=== PATIENT | male | born 1975 | race Caucasian/White ===

== ENCOUNTER 2019-03-15 17:21 | Emergency (ER) | payer OTHER ==
--- NOTE | 2019-03-15 17:34 | EDPHY ---
H & P Stated Complaint: colon cancer lives [place] seen last [facility]/ increased pain Time Seen by Provider: 03/15/19 17:33 - Personal History Current Tetanus Diphtheria and Acellular Pertussis (TDAP): Yes - Medical/Surgical History Hx Asthma: No Hx Chronic Respiratory Disease: No Hx Diabetes: No Hx Cardiac Disease: No Hx Renal Disease: No Hx Cirrhosis: No Hx Alcoholism: No Hx HIV/AIDS: No Hx Splenectomy or Spleen Trauma: No Other PMH: colon cancer dvt r arm abd stents - Social History Smoking Status: Never smoked Constitutional: Initial Vital Signs Temperature (C) 36.6 C 03/15/19 17:26 Heart Rate 83 03/15/19 17:26 Respiratory Rate 18 03/15/19 17:26 Blood Pressure 113/81 H 03/15/19 17:26 O2 Sat (%) 96 03/15/19 17:26 O2 Delivery Mode Nasal Cannula O2 (L/minute) 2 Allergies/Adverse Reactions: No Known Allergies Allergy (Unverified 03/15/19 17:24) Home Medications: Medication Instructions Recorded Amlodipine Besylate 03/15/19 Ativan 03/15/19 Azithioprrene 03/15/19 Cymbalta 03/15/19 Eliquis 03/15/19 Lisinopril 03/15/19 Oxycodone HCl 03/15/19 Prednisone 03/15/19 Medical Decision Making ED Course/Re-evaluation: CHIEF COMPLAINT: Abdominal pain HISTORY OF PRESENT ILLNESS: The patient is a 43 y/o male with a history of metastatic colon cancer complaining of severe abdominal pain. The patient is being treated for cancer in [place] after being diagnosed 1.5 years ago. The patient is about to start another round of treatment next week and had an intestinal stent placed. Last Friday, he had a PET scan and is requesting not to have another CT. Today while driving home he developed the severe pain. He is still passing gas and does not feel obstructed. No fever, headache, body aches, lightheadedness, chest pain, heart palpitations, shortness of breath, cough, urinary or bowel complaints, numbness, paresthesias. REVIEW OF SYSTEMS: A comprehensive 10 system review of systems is otherwise negative aside from elements mentioned in the history of present illness and medical decision making. PHYSICAL EXAM: HR, BP, O2 Sat, RR. Temp noted General Appearance: Alert, well hydrated, appropriate, and non-toxic appearing. Head: Atraumatic without scalp tenderness or obvious injury Eyes: Pupils equal, round, reactive to light and accommodation, EOMI, no trauma , no injection. Ears: Clear bilaterally, no perforation, normal landmarks Nose: Atraumatic, no rhinorrhea, clear. Throat: There is no erythema or exudates, no lesions, normal tonsils, mucus membranes moist. Neck: Supple, 2+ carotid upstroke, nontender, no lymphadenopathy. Respiratory: No retractions, no distress, no wheezes, and no accessory muscle use. Lungs are clear to auscultation bilaterally. Cardiovascular: Regular rate and rhythm, no murmurs, rubs, or gallops. Bilateral carotid, radial, dorsalis pedis, and posterior tibial pulses intact. Good capillary refill all extremities. Gastrointestinal: Abdomen is soft, nontender, non-distended, no masses, no rebound, no guarding, no peritoneal signs. Musculoskeletal: Normal active ROM of all extremities, atraumatic. Neurological: Alert, appropriate, and interactive. The patient has normal DTRs and non-focal cranial nerves, motor, sensory, and cerebellar exam. Skin: No rashes, good turgor, no nodules on palpation. Past medical history: Colon cancer, DVT Past surgical history: Intestinal stent Family history: Denies Social history: Lives in [place], employed, does not abuse tobacco drugs or alcohol DIAGNOSTICS/PROCEDURES/CRITICAL CARE TIME: Declined. DIFFERENTIAL DIAGNOSIS: The differential diagnosis for the patient's abdominal pain included but was not limited to metastatic colon cancer, appendicitis, cholecystitis, hernias, testicular torsion, gastritis, and urinary tract infection. MEDICAL DECISION MAKING: The patient is a 43 y/o male with a history of metastatic colon cancer presenting with severe abdominal pain. The patient is about to start another round of treatment next week and had an intestinal stent placed. Last Friday, he had a PET scan and is requesting not to have another CT. Today while driving home he developed the severe pain. On exam he appears uncomfortable and has diffuse abdominal tenderness. Labs ordered; 1L IV NS, 4mg IV Zofran, 30mg IV Toradol, and 1mg IV Dilaudid administered. 1828: Patient is still in pain; 20mg IV Ketamine administered. 1951: Patient is feeling better after medication. He has called a friend for a ride home to [place] with plan to follow up with his oncologist. Return precautions provided; patient is comfortable with this plan. - Data Points Laboratory Results: Laboratory Results 03/15/19 18:50 03/15/19 18:50 03/15/19 03/15/19 03/15/19 18:58 18:50 18:50 WBC 12.73 10^3/uL H 10^3/uL (3.80-9.50) RBC 4.25 10^6/uL L 10^6/uL (4.40-6.38) Hgb 13.1 g/dL L g/dL (13.7-17.5) Hct 38.8 % L % (40.0-51.0) MCV 91.3 fL fL (81.5-99.8) MCH 30.8 pg pg (27.9-34.1) MCHC 33.8 g/dL g/dL (32.4-36.7) RDW 13.1 % % (11.5-15.2) Plt Count 228 10^3/uL 10^3/uL (150-400) MPV 9.1 fL fL (8.7-11.7) Neut % (Auto) 91.4 % H % (39.3-74.2) Lymph % (Auto) 2.6 % L % (15.0-45.0) [place] % (Auto) 4.9 % % (4.5-13.0) Eos % (Auto) 0.3 % L % (0.6-7.6) Baso % (Auto) 0.2 % L % (0.3-1.7) Nucleat RBC Rel Count 0.0 % % (0.0-0.2) Absolute Neuts (auto) 11.64 10^3/uL H 10^3/uL (1.70-6.50) Absolute Lymphs (auto) 0.33 10^3/uL L 10^3/uL (1.00-3.00) Absolute Monos (auto) 0.62 10^3/uL 10^3/uL (0.30-0.80) Absolute Eos (auto) 0.04 10^3/uL 10^3/uL (0.03-0.40) Absolute Basos (auto) 0.03 10^3/uL 10^3/uL (0.02-0.10) Absolute Nucleated RBC 0.00 10^3/uL 10^3/uL (0-0.01) Immature Gran % 0.6 % % (0.0-1.1) Immature Gran # 0.08 10^3/uL 10^3/uL (0.00-0.10) RBC/WBC/PLT Morphology TNP Platelet Estimate TNP Sodium 133 mEq/L L mEq/L (135-145) Potassium 3.7 mEq/L mEq/L (3.5-5.2) Chloride 100 mEq/L mEq/L (97-110) Carbon Dioxide 24 mEq/l mEq/l (22-31) Anion Gap 9 mEq/L mEq/L (6-14) BUN 17 mg/dL mg/dL (7-23) Creatinine 0.8 mg/dL mg/dL (0.7-1.3) Estimated GFR > 60 Glucose 89 mg/dL mg/dL (70-100) Calcium 8.6 mg/dL mg/dL (8.5-10.4) Total Bilirubin 0.6 mg/dL mg/dL (0.1-1.4) Conjugated Bilirubin 0.0 mg/dL mg/dL (0.0-0.5) Unconjugated Bilirubin 0.6 mg/dL mg/dL (0.0-1.1) AST 27 IU/L IU/L (17-59) ALT 36 IU/L IU/L (21-72) Alkaline Phosphatase 58 IU/L IU/L (38-126) POC Troponin I 0.00 ng/mL ng/mL (0.00-0.08) Total Protein 5.6 g/dL L g/dL (6.3-8.2) Albumin 3.0 g/dL L g/dL (3.5-5.0) Lipase 60 IU/L IU/L (23-300) Medications Given: Discontinued Medications Hydromorphone HCl (Dilaudid) 1 mg IVP EDNOW ONE Stop: 03/15/19 17:38 Last Admin: 03/15/19 17:59 Dose: 1 mg Hydromorphone HCl (Dilaudid) 1 mg IVP EDNOW ONE Stop: 05/20/19 18:52 Last Admin: 03/15/19 18:54 Dose: 1 mg Sodium Chloride (Ns) 1,000 mls @ 0 mls/hr IV EDNOW ONE; Wide Open PRN Reason: Protocol Stop: 03/15/19 17:38 Last Admin: 03/15/19 17:59 Dose: 1,000 mls Ketamine HCl (Ketamine) 20 mg IV EDNOW ONE Stop: 03/15/19 18:27 Last Admin: 03/15/19 18:28 Dose: 20 mg Ketorolac Tromethamine (Toradol) 30 mg IVP EDNOW ONE Stop: 03/15/19 17:38 Last Admin: 03/15/19 17:58 Dose: 30 mg Ondansetron HCl (Zofran) 4 mg IVP EDNOW ONE Stop: 03/15/19 17:38 Last Admin: 03/15/19 17:57 Dose: 4 mg Point of Care Test Results: Chemistry 03/15/19 18:58 POC Troponin I 0.00 ng/mL ng/mL (0.00-0.08) Departure - Departure Disposition: Home, Routine, Self-Care Clinical Impression: Abdominal pain Qualifiers: Abdominal location: generalized Qualified Code(s): R10.84 - Generalized abdominal pain Colon cancer Qualifiers: Colon location: unspecified part of colon Qualified Code(s): C18.9 - Malignant neoplasm of colon, unspecified Condition: Good Instructions: Abdominal Pain (ED) Additional Instructions: 1. Follow-up with your primary doctor within 72 hours. 2. Return to the Emergency Department for fever, chest pain, shortness of breath , increasing pain or other worsening of condition. Referrals: [facility],. [Clinic] - As per Instructions Report Scribed for: López Mayberry Report Scribed by: Rea Raya Date of Report: 03/15/19 Time of Report: 19:53
[2019-03-15] MEDS ORDERED: ONDANSETRON 4 MG/2 ML VIAL IVP ONE (17:37)
[2019-03-15] MEDS ORDERED: HYDROmorphONE/DILAUDID 2 MG/ML INJ IVP ONE ×2 (17:37→18:51)
[2019-03-15] MEDS ORDERED: NS 1,000 ML IV ONE (17:37)
[2019-03-15] MEDS ORDERED: KETOROLAC 30 MG/1 ML SDV IVP ONE (17:37)
[2019-03-15] MEDS ORDERED: HYDROmorphONE/DILAUDID 1 MG/ML INJ ONE ×2 (17:55→18:52)
[2019-03-15] MEDS ORDERED: KETAMINE 500 MG/10 ML VIAL IV ONE (18:26)
[2019-03-15] MEDS ORDERED: KETAMINE 200 MG/20 ML VIAL ONE (18:27)
[2019-03-15 19:08] LABS: PLATELET COUNT 228 10^3/uL (150-400)
[2019-03-15 20:29] VITALS: BP 123/67
== END 2019-03-15 20:30 | disposition home or self-care (01) ==
DX: R10.84 Generalized abdominal pain (principal); C18.9 Malignant neoplasm of colon, unspecified; E86.9 Volume depletion, unspecified
CPT/HCPCS: 84484-ER; 96374; J1170; J1885; J2405